=== PATIENT | female | born 1995 | race Caucasian/White ===

== ENCOUNTER 2019-01-06 09:19 | Emergency (ER) | payer OTHER ==
--- NOTE | 2019-01-06 09:31 | EDM.PDOC ---
ED HPI GENERAL MEDICAL PROBLEM - General Chief Complaint: General Stated Complaint: COUGH Time Seen by Provider: 01/06/19 09:25 - History of Present Illness INITIAL COMMENTS - FREE TEXT/NARRATIVE: HISTORY AND PHYSICAL: History of present illness: Patient is a 23-year-old white female who presents with a cough over the last several days she's also had some sinus congestion and drainage. There's been no fever chills nausea vomiting she's here at the request of her employer for evaluation she denies influenza immunization this year. Review of systems: As per history of present illness and below otherwise all systems reviewed and negative. Past medical history: As per history of present illness and as reviewed below otherwise noncontributory. Surgical history: As per history of present illness and as reviewed below otherwise noncontributory. Social history: No reported history of drug or alcohol abuse. Family history: As per history of present illness and as reviewed below otherwise noncontributory. Physical exam: HEENT: Atraumatic, normocephalic, pupils reactive, negative for conjunctival pallor or scleral icterus, mucous membranes moist, throat clear, neck supple, nontender, trachea midline. Lungs: Clear to auscultation, breath sounds equal bilaterally, chest nontender. Heart: S1S2, regular, negative for clicks, rubs, or JVD. Abdomen: Soft, nondistended, nontender. Negative for masses or hepatosplenomegaly. Negative for costovertebral tenderness. Pelvis: Stable nontender. Genitourinary: Deferred. Rectal: Deferred. Extremities: Atraumatic, negative for cords or calf pain. Neurovascular unremarkable. Neuro: Awake, alert, oriented. Cranial nerves II through XII unremarkable. Cerebellum unremarkable. Motor and sensory unremarkable throughout. Exam nonfocal. Diagnostics: Chest x-ray influenza screen Therapeutics: None Impression: #1 tracheobronchitis Definitive disposition and diagnosis as appropriate pending reevaluation and review of above. - Related Data Allergies Allergy/AdvReac Type Severity Reaction Status Date / Time azithromycin Allergy Stomach Verified 01/06/19 09:26 Ache Penicillins Allergy Rash Verified 01/06/19 09:26 Home Meds: Home Meds . [No Known Home Meds] 01/06/19 [History] ED ROS GENERAL - Review of Systems Review Of Systems: ROS reveals no pertinent complaints other than HPI. ED EXAM, GENERAL - Physical Exam Exam: See Below (See dictation) Course - Orders/Labs/Meds Orders: Active Orders 24 hr Category Date Time Status Chest 1V Frontal [CR] Stat Exams 01/06/19 09:26 Ordered INFLUENZA A+B AG SCREEN [RM] Stat Lab 01/06/19 09:26 Ordered Departure - Departure Time of Disposition: 09:30 Disposition: Home, Self-Care 01 Condition: Good Clinical Impression: Tracheobronchitis - Discharge Information Referrals: PCP,None [Primary Care Provider] - Additional Instructions: The following information is given to patients seen in the emergency department who are being discharged to home. This information is to outline your options for follow-up care. We provide all patients seen in our emergency department with a follow-up referral. The need for follow-up, as well as the timing and circumstances, are variable depending upon the specifics of your emergency department visit. If you don't have a primary care physician on staff, we will provide you with a referral. We always advise you to contact your personal physician following an emergency department visit to inform them of the circumstance of the visit and for follow-up with them and/or the need for any referrals to a consulting specialist. The emergency department will also refer you to a specialist when appropriate. This referral assures that you have the opportunity for followup care with a specialist. All of these measure are taken in an effort to provide you with optimal care, which includes your followup. Under all circumstances we always encourage you to contact your private physician who remains a resource for coordinating your care. When calling for followup care, please make the office aware that this follow-up is from your recent emergency room visit. If for any reason you are refused follow-up, please contact the [facility] emergency department at and asked to speak to the emergency department charge nurse. [facility] [address] [place] [id number] Albuterol inhaler as prescribed follow-up primary medical doctor and/or clinic above return as needed as discussed - My Orders Last 24 Hours: My Active Orders 01/06/19 09:26 Chest 1V Frontal [CR] Stat INFLUENZA A+B AG SCREEN [RM] Stat - Assessment/Plan Last 24 Hours: My Active Orders 01/06/19 09:26 Chest 1V Frontal [CR] Stat INFLUENZA A+B AG SCREEN [RM] Stat
--- NOTE | 2019-01-06 11:10 | CR ---
INDICATION: Chest pain; shortness of breath. COMPARISON: None. TECHNIQUE: Single AP portable chest. FINDINGS: Normal size cardiac silhouette. Clear lung murry without evidence of acute pneumonic infiltrates or CHF. No pneumothorax or pleural effusion. Impression: Negative portable AP chest. Dictated by Ezequiel Rdz MD @ Jan 06 2019 11:07AM Signed by Dr. Ezequiel Rdz @ Jan 06 2019 11:08AM
== END 2019-01-06 11:18 | disposition home or self-care (01) ==
LOC: MW.ED 09:19
DX: J40 Bronchitis, not specified as acute or chronic (principal); Z88.1 Allergy status to other antibiotic agents; Z88.0 Allergy status to penicillin
CPT/HCPCS: 71045; 71045-26; 81025; 87804; 99282; 99283-25

== ENCOUNTER 2019-01-20 09:18 | Emergency (ER) | payer OTHER ==
[2019-01-20] MEDS ORDERED: Ibuprofen 400 MG Tab PO ONE (09:42)
--- NOTE | 2019-01-20 09:47 | EDM.PDOC ---
ED HPI GENERAL MEDICAL PROBLEM - General Chief Complaint: ENT Problem Stated Complaint: FLU Time Seen by Provider: 01/20/19 09:27 Source of Information: Reports: Patient History Limitations: Reports: No Limitations - History of Present Illness INITIAL COMMENTS - FREE TEXT/NARRATIVE: 23 y/o female w/ c/o sore throat, chills, subjective fever and b/l ear congestion x 2-3 days. Used Nyquil w/ minimal relief. Mildly productive cough but came to ED secondary to vomiting this morning (post-tussive emesis). History of graves disease but no daily medications. throat Pain Score (Numeric/FACES): 5 - Related Data Allergies Allergy/AdvReac Type Severity Reaction Status Date / Time azithromycin Allergy Stomach Verified 01/20/19 09:41 Ache Penicillins Allergy Rash Verified 01/20/19 09:41 Home Meds: Home Meds Amoxicillin 875 mg PO BID 5 Days #10 tablet 01/20/19 [Rx] Past Medical History HEENT History: Reports: None Cardiovascular History: Reports: None Respiratory History: Reports: None Gastrointestinal History: Reports: None Genitourinary History: Reports: None [employer] History: Reports: None Musculoskeletal History: Reports: None Neurological History: Reports: None Psychiatric History: Reports: None Endocrine/Metabolic History: Reports: Other (See Below) Other Endocrine/Metabolic History: Graves disease Hematologic History: Reports: None Immunologic History: Reports: None Oncologic (Cancer) History: Reports: None Dermatologic History: Reports: None - Infectious Disease History Infectious Disease History: Reports: Chicken Pox - Past Surgical History Head Surgeries/Procedures: Reports: None HEENT Surgical History: Reports: None Cardiovascular Surgical History: Reports: None Respiratory Surgical History: Reports: None GI Surgical History: Reports: None Female Surgical History: Reports: None Endocrine Surgical History: Reports: None Neurological Surgical History: Reports: None Musculoskeletal Surgical History: Reports: None Oncologic Surgical History: Reports: None Dermatological Surgical History: Reports: None Social & Family History - Family History Family Medical History: Noncontributory - Caffeine Use Caffeine Use: Reports: Energy Drinks ED ROS ENT - Review of Systems Review Of Systems: See Below Constitutional: Reports: Fever, Chills HEENT: Reports: Ear Pain, Throat Pain. Denies: Sinus Problem Respiratory: Reports: Cough. Denies: Shortness of Breath, Wheezing Cardiovascular: Reports: No Symptoms. Denies: Chest Pain, Blood Pressure Problem GI/Abdominal: Denies: Abdominal Pain, Constipation, Diarrhea Musculoskeletal: Denies: Neck Pain, Shoulder Pain Skin: Reports: No Symptoms Neurological: Denies: Confusion, Dizziness, Headache Psychiatric: Denies: Agitation, Anxiety, Confusion ED EXAM, ENT - Physical Exam Exam: See Below Exam Limited By: No Limitations General Appearance: Alert, No Apparent Distress Ears: Normal External Exam, Normal Canal, Normal TMs Nose: Normal Inspection Mouth/Throat: Normal Inspection, Other (minimal posterior erythema ) Head: Atraumatic, Normocephalic Respiratory/Chest: No Respiratory Distress, Lungs Clear, Normal Breath Sounds Cardiovascular: Tachycardia GI/Abdominal: Soft, Non-Tender Neurological: Alert, Oriented, Normal Cognition Psychiatric: Normal Affect, Normal Mood Skin: Warm, Dry, Intact Course - Vital Signs Last Recorded V/S: Last Vital Signs Temp 97.7 F 01/20/19 09:39 Pulse 120 H 01/20/19 10:24 Resp 18 01/20/19 09:39 BP 105/69 01/20/19 09:39 Pulse Ox 96 01/20/19 09:39 - Orders/Labs/Meds Orders: Active Orders 24 hr Category Date Time Status CULTURE STREP A CONFIRMATION [] Stat Lab 01/20/19 09:55 Results STREP SCRN A RAPID W CULT CONF [] Stat Lab 01/20/19 09:55 Results Meds: Medications Discontinued Medications Generic Name Dose Route Start Last Admin Trade Name Lorin PRN Reason Stop Dose Admin Ibuprofen 400 mg 01/20/19 09:42 01/20/19 10:05 Motrin PO 01/20/19 09:43 400 mg ONETIME ONE Administration - Re-Assessments/Exams Free Text/Narrative Re-Assessment/Exam: 01/20/19 10:58 re-examination: pt. denies any chest pain and/or SOB States having amoxicillin in the past w/o issues Will follow up with PCP if symptoms worsen Departure - Departure Time of Disposition: 10:56 Disposition: Home, Self-Care 01 Clinical Impression: Acute pharyngitis - Discharge Information Prescriptions: Amoxicillin 875 mg PO BID 5 Days #10 tablet Instructions: Sore Throat, [id number] Referrals: PCP,None [Primary Care Provider] - Forms: ED Department Discharge Additional Instructions: Advised to use appropriate amounts of tylneol and or Motrin as needed for pain and fever. Drink plenty of fluids. You will be given antibiotics today. Have a daily probiotic e.g yogurt Follow up with your PCP in 1-2 weeks for follow up or earlier if symptoms worsen Advised to avoid school or work until you are 24 hours symptom free - My Orders Last 24 Hours: My Active Orders 01/20/19 09:55 CULTURE STREP A CONFIRMATION [RM] Stat STREP SCRN A RAPID W CULT CONF [] Stat - Assessment/Plan Last 24 Hours: My Active Orders 01/20/19 09:55 CULTURE STREP A CONFIRMATION [RM] Stat STREP SCRN A RAPID W CULT CONF [RM] Stat
== END 2019-01-20 11:20 | disposition home or self-care (01) ==
LOC: MW.ED 09:18
DX: J02.9 Acute pharyngitis, unspecified (principal); Z88.0 Allergy status to penicillin; Z88.1 Allergy status to other antibiotic agents
CPT/HCPCS: 87081; 87804; 87880; 99284; A9270